=== PATIENT | female | born 1960 | race Native Hawaiian/Other Pacific Islander ===

== ENCOUNTER 2016-10-09 08:38 | Outpatient (CLI) | payer BC ==
[~2016-10-09 08:38] MED LIST: BENICAR HCT1 TA1 PO; CYCL10TA35 PO; LEVO0.0723 PO; LEVO0.08 PO; MELOXICAM7.5 MG OR
== END 2016-10-09 19:43 | disposition home or self-care (01) ==
LOC: US 08:38
DX: M79.604 Pain in right leg (principal)

== ENCOUNTER 2017-07-02 11:15 | Observation (INO) | payer BC ==
[~2017-07-02] VITALS: Ht 167.6 cm; Wt 81.9 kg
[2017-07-02 14:11] LABS: PLATELET COUNT 157 K/uL (152-353)
[2017-07-02 14:37] LABS: PARTIAL THROMBOPLASTIN TIME 26.7 SECONDS (24.5-33.6)
[2017-07-02 14:51] LABS: POTASSIUM 3.4 mmol/L (3.6-5.2); SODIUM 140 mmol/L (136-145)
[2017-07-02 16:41] VITALS: BP 167/63; TEMP 98.2; Ht 167.6 cm; Wt 81.9 kg
[2017-07-02 20:32] VITALS: BP 140/66; TEMP 98.1
[2017-07-03 04:00] VITALS: BP 132/71; TEMP 98
[2017-07-03 04:30] LABS: PLATELET COUNT 151 K/uL (152-353)
[2017-07-03 04:40] LABS: POTASSIUM 3.7 mmol/L (3.6-5.2); SODIUM 138 mmol/L (136-145)
[2017-07-03 04:56] LABS: PARTIAL THROMBOPLASTIN TIME 35.7 SECONDS (24.5-33.6)
--- NOTE | 2017-07-03 05:53 | NUR ---
PT TRANSFERED VIA [facility] TO [facility] IN [place]. ALL BELONGINGS SENT WITH .
== END 2017-07-03 05:30 | disposition short-term general hospital (02) ==
LOC: MED/SURG 11:15
PROVIDERS: ADMIT Internal Medicine
DX: R07.89 Other chest pain (principal); I10 Essential (primary) hypertension; I25.2 Old myocardial infarction
CPT/HCPCS: 36415; 36591; 80053; 82550; 84484; 85027; 85610; 85730; 93005; 96372; 99220; G0378; G0379; J1650

== ENCOUNTER 2017-09-19 09:00 | Outpatient (CLI) | payer BC ==
[2017-09-19 09:30] LABS: PLATELET COUNT 192 K/uL (152-353)
[2017-09-19 09:53] LABS: POTASSIUM 3.6 mmol/L (3.6-5.2); SODIUM 139 mmol/L (136-145)
== END 2017-09-19 22:00 | disposition home or self-care (01) ==
LOC: LABW 09:00
PROVIDERS: Internal Medicine
DX: I10 Essential (primary) hypertension (principal); E78.4 Other hyperlipidemia; E03.8 Other specified hypothyroidism
CPT/HCPCS: 36415; 80053; 80061; 81000; 84439; 84443; 85027

== ENCOUNTER 2018-07-21 16:22 | Emergency (ER) | payer BC ==
[~2018-07-21] VITALS: Ht 167.6 cm; Wt 81.2 kg
[2018-07-21 17:38] LABS: POTASSIUM 3.7 mmol/L (3.6-5.2); SODIUM 142 mmol/L (136-145)
[2018-07-21 17:54] LABS: PLATELET COUNT 179 K/uL (152-353)
[2018-07-21 18:55] VITALS: BP 151/59; TEMP 97.6
== END 2018-07-21 18:55 | disposition home or self-care (01) ==
LOC: ED 16:22
DX: R07.89 Other chest pain (principal); K21.9 Gastro-esophageal reflux disease without esophagitis
CPT/HCPCS: 36415; 80053; 81000; 82550; 82553; 84484; 85027; 93005; 99283

== ENCOUNTER 2018-08-11 09:34 | Outpatient (CLI) | payer BC ==
[2018-08-11 10:11] LABS: PLATELET COUNT 171 K/uL (152-353)
== END 2018-08-11 20:30 | disposition home or self-care (01) ==
LOC: LABW 09:34
PROVIDERS: Internal Medicine
DX: I10 Essential (primary) hypertension (principal); E03.9 Hypothyroidism, unspecified; E78.5 Hyperlipidemia, unspecified
CPT/HCPCS: 36415; 80053; 80061; 84439; 84443; 85027

== ENCOUNTER 2019-02-19 11:45 | Outpatient (CLI) | payer BC | END 2019-02-19 19:44 | disposition home or self-care (01) | LOC: RAD 11:45 | DX: M25.511 Pain in right shoulder (principal); M54.5 Low back pain ==

== ENCOUNTER 2021-01-18 11:23 | Outpatient (CLI) | payer BC | END 2021-01-18 21:03 | disposition home or self-care (01) | LOC: US 11:23 | PROVIDERS: ATTEND Internal Medicine | DX: R79.89 Other specified abnormal findings of blood chemistry (principal) ==

== ENCOUNTER 2022-10-09 15:33 | Emergency (ER) | payer BC ==
[~2022-10-09] VITALS: Ht 167.6 cm; Wt 72.6 kg
[2022-10-09 15:38] VITALS: TEMP 97.3
[2022-10-09 18:30] VITALS: BP 169/75
== END 2022-10-09 18:32 | disposition home or self-care (01) ==
LOC: ED 15:33
DX: I10 Essential (primary) hypertension (principal)
CPT/HCPCS: 99281

== ENCOUNTER 2023-01-11 12:11 | Outpatient (CLI) | payer BC ==
[2023-01-11 12:59] LABS: PLATELET COUNT 246 K/uL (152-353)
[2023-01-11 13:22] LABS: POTASSIUM 4.2 mmol/L (3.6-5.2)
== END 2023-01-11 19:21 | disposition home or self-care (01) ==
LOC: LABW 12:11
PROVIDERS: ATTEND Internal Medicine
DX: I10 Essential (primary) hypertension (principal); N39.0 Urinary tract infection, site not specified
CPT/HCPCS: 36415; 80053; 80061; 84439; 84443; 85027

== ENCOUNTER 2023-02-05 08:31 | Outpatient (CLI) | payer BC | END 2023-02-05 20:59 | LOC: US 08:31 | PROVIDERS: ATTEND Internal Medicine | DX: R10.12 Left upper quadrant pain (principal) ==

== ENCOUNTER 2023-04-22 13:23 | Outpatient (CLI) | payer BC | END 2023-04-22 21:33 | disposition home or self-care (01) | LOC: RAD 13:23 | PROVIDERS: ATTEND Nurse Practitioner Family | DX: M25.511 Pain in right shoulder (principal) ==

== ENCOUNTER 2023-04-30 16:03 | Outpatient (CLI) | payer BC | END 2023-04-30 20:54 | disposition home or self-care (01) | LOC: LAB 16:03 | PROVIDERS: ATTEND Internal Medicine | DX: N39.0 Urinary tract infection, site not specified (principal) | CPT/HCPCS: 81002; 87088 ==